=== PATIENT | male | born 1990 | race Caucasian/White ===

== ENCOUNTER → 2021-02-25 15:28 | Outpatient (CLI) | payer BC, SELFPAY ==
--- NOTE | ~2021-02-25 | US_ITS ---
EXAMINATION: US scrotum doppler EXAM DATE: 02/25/2021 15:57 INDICATION: N50.819 - Testicular pain, unspecified . TECHNIQUE: Multiple grayscale and Doppler images of the testicles and scrotum were obtained bilateral ly. There is no prior study for comparison. FINDINGS: Right testicle measures 4.8 x 2.5 x 3.9 cm and is morphologically normal. Low resistance Doppler niko w confirmed. Small epididymal head cyst. Small hydrocele. Left testicle measures 4.5 x 2.8 x 3.8 cm and is morphologically normal. Low resistance Doppler flow confirmed. Small epididymal head cyst. Small hydrocele. IMPRESSION: Small hydroceles and epididymal head cysts. No acute findings. Reviewed, dictated and finalized at location A. PROCESS MANAGER
== END ==
PROVIDERS: PCP Family Medicine; Visit Provider Nurse Practitioner Family
DX: N50.819 Testicular pain, unspecified (principal); N43.3 Hydrocele, unspecified; L72.0 Epidermal cyst
CPT/HCPCS: 76870; 93976